=== PATIENT | female | born 1960 | race Caucasian/White ===

== ENCOUNTER → 2020-11-09 | Outpatient (CLI) | payer OTHER ==
[~2020-11-09] MED LIST: FISH OIL 1,0001 EAC9 PO; HYDROCHLOROTHIA25 M1 PO; MELOXICAM7.5 MG PO; NORVASC5 M1 PO; TYLENOL325 MG PO; ZESTRIL40 MG PO
[2020-11-09 09:15] LABS: MCHC 34.2 g/dL (28.0-37.0); MCV 90.7 fL (80.0-100.0); RBC 4.51 mil/uL (4.20-5.00)
[2020-11-09 09:16] LABS: URINE BILIRUBIN NEGATIVE (Negative); URINE BLOOD NEGATIVE (Negative); URINE CLARITY CLEAR; URINE COLOR YELLOW; URINE GLUCOSE-RANDOM* NEGATIVE (Negative); URINE KETONES NEGATIVE (Negative); URINE LEUKOCYTES-REFLEX NEGATIVE (Negative); URINE NITRITE-REFLEX NEGATIVE (Negative); URINE PROTEIN (DIPSTICK) NEGATIVE (Negative); URINE UROBILINOGEN 0.2 E.U./dl (0.2-1.0)
[2020-11-09 09:26] LABS: CALCIUM 9.1 mg/dL (8.5-10.1); CREATININE 1.6 mg/dL (0.6-1.0); POTASSIUM 4.5 mmol/L (3.5-5.1)
[2020-11-09 09:32] LABS: INR 0.99; PROTIME 10.8 Seconds (10.5-12.1)
== END ==
LOC: PAC 08:15
PROVIDERS: ATTEND Orthopaedic Surgery
DX: Z01.812 Encounter for preprocedural laboratory examination (principal); M17.0 Bilateral primary osteoarthritis of knee

== ENCOUNTER 2020-11-23 06:14 | Observation (INO) | payer OTHER ==
[2020-11-09 09:15] LABS: MCHC 34.2 g/dL (28.0-37.0); MCV 90.7 fL (80.0-100.0); RBC 4.51 mil/uL (4.20-5.00)
[2020-11-09 09:16] LABS: URINE BILIRUBIN NEGATIVE (Negative); URINE BLOOD NEGATIVE (Negative); URINE CLARITY CLEAR; URINE COLOR YELLOW; URINE GLUCOSE-RANDOM* NEGATIVE (Negative); URINE KETONES NEGATIVE (Negative); URINE LEUKOCYTES-REFLEX NEGATIVE (Negative); URINE NITRITE-REFLEX NEGATIVE (Negative); URINE PROTEIN (DIPSTICK) NEGATIVE (Negative); URINE UROBILINOGEN 0.2 E.U./dl (0.2-1.0)
[2020-11-09 09:26] LABS: CALCIUM 9.1 mg/dL (8.5-10.1); CREATININE 1.6 mg/dL (0.6-1.0); POTASSIUM 4.5 mmol/L (3.5-5.1)
[2020-11-09 09:32] LABS: INR 0.99; PROTIME 10.8 Seconds (10.5-12.1)
[~2020-11-23] VITALS: Ht 170.2 cm; Wt 117.9 kg
--- NOTE | ~2020-11-23 | D ---
[facility] [place] [address] DISCHARGE SUMMARY Name: MOOKIE JACQUES [id number] Ad[facility]: 11/23/20 Attend Phys: Jhony Cerrato MD Discharge: Date of : 60 Report #: [id number] THIS REPORT FOR: cc: FAM - Family physician unknown FAM - Family physician unknown Jhony Cerrato MD ~ DATE OF SERVICE: 11/24/2020 FINAL DIAGNOSES: End-stage degenerative arthritis, right knee. Hypertension. OPERATIONS AND PROCEDURES: Right total knee arthroplasty. HISTORY: This heavy deconditioned 60-year-old female presents with progressive bilateral knee pain, worse on the right side. She was admitted for right total knee arthroplasty. Her hospital course has at this point been largely unremarkable. She tolerated the surgical procedure well, but is mildly uncomfortable. Hemovac drainage was minimal and the drain has been removed on the first postoperative morning. She is starting a regular diet and tolerating that reasonably well, although with some mild nausea. She still has quite a bit of discomfort, but is being managed with oral pain medication. She has started limited activity and will begin more aggressive physical therapy today. Pending this, we are hoping that she may be able to advance activity and achieve independent and safe ambulation with a walker today or this evening. If she can make significant progress and seems safe and functionally independent, then we will plan for discharge either end of day today on 11/24 or tomorrow on 11/25. DISCHARGE MEDICATIONS: Include lisinopril 40 mg daily, hydrochlorothiazide 25 mg daily, Xarelto 10 mg daily, hydrocodone 5 or 10 mg q. 4 hours p.r.n. for pain. She will continue regular diet at home. She will continue with gradually advancing activity with physical therapy assistance and family assistance. I have asked that she call me if there are any problems or questions. We will plan to see her back in my office in 1 week for followup and in 2 weeks for suture removal. By: [id number] Jhony Cerrato MD /nt
[~2020-11-23 06:14] MED LIST changes: -NORVASC5 M1 PO
[2020-11-23 06:30] VITALS: BP 124/71
--- NOTE | 2020-11-23 10:10 | O ---
[facility] [place] [address] OPERATIVE REPORT Name: MOOKIE JACQUES Room #: 150-2 [facility]#: [id number] Admission: 11/23/20 Attend Phys: Jhony Cerrato MD Discharge: Date of : 60 Report #: [id number] THIS REPORT FOR: cc: FAM - Family physician unknown FAM - Family physician unknown Jhony Cerrato MD ~ DATE OF SERVICE: 11/23/2020 PREOPERATIVE DIAGNOSIS: End-stage degenerative arthritis, right knee. POSTOPERATIVE DIAGNOSIS: End-stage degenerative arthritis, right knee. PROCEDURE: Right total knee arthroplasty. SURGEON: Jhony Cerrato MD INDICATIONS: This 60-year-old female complains of chronic severe progressive right knee pain. Clinical exam and x-rays confirm moderately severe end-stage degenerative arthritis with damage in all 3 compartments. She has tried conservative measures without benefit. Her symptoms limit her ability to function and ambulate effectively. She has decided to go ahead with total knee arthroplasty. DESCRIPTION OF PROCEDURE: The patient was taken to the operating room where she was placed under general anesthesia. A femoral nerve block was also applied. The right knee and leg were meticulously prepped and draped. A thigh tourniquet was applied and inflated to 300 mmHg. An anterior longitudinal skin incision was made and carried through the medial retinaculum. The patella was reflected laterally. Marked degenerative change in all three compartments was noted. The Trent and Nephew knee system was utilized. Intramedullary guides were used on both the femur and the tibia. The femur was cut in 5 degrees of valgus and a size 6 femoral component seemed to fit nicely. The tibia was cut perpendicular to the long axis of the bone and a size 5 tibial component fit nicely. A size 9 mm polyethylene trial was placed and this resulted in good knee stability, full knee extension and flexion beyond 130 degrees. The patella surface was resected and a 35 mm patellar button fit nicely. The patella seemed to track nicely and appeared to be stable. The trial components were removed. The surfaces were thoroughly irrigated and dried. The intramedullary canal was blocked with a bone block on both the femoral and tibial sides. Methyl methacrylate cement was mixed and injected into the porous surface of the proximal tibia. The Trent and Nephew Audra II right nonporous tibial baseplate was applied using the size 5 component. This was impacted into position and seated nicely and appeared to be secure. Excess cement was removed from around its margin. A 9 mm Legion cruciate retaining high flexion polyethylene insert was then applied. It was snapped into position [address] [address] OPERATIVE REPORT Name: MOOKIE JACQUES Room #: 150-2 [facility]#: [id number] Admission: 11/23/20 Attend Phys: Jhony Cerrato MD Discharge: Date of : 60 Report #: [id number] and seemed to seat nicely and appeared to be secure. The Trent and Nephew size 6 right cruciate retaining Legion porous femoral component was impacted into position using a small amount of cement at the distal anchor holes where the bone is mildly osteopenic. This component also was seated nicely and appeared to be secure. The size 35 mm Audra II patellar button was applied with appropriate anchor holes and cement and secured with a patellar clamp until the cement had hardened. Once the cement was secure, range of motion, alignment and stability were once again assessed and felt to be satisfactory. The knee demonstrates full extension and the patella tracks nicely. Flexion is beyond 130 degrees with satisfactory stability. The wound was copiously irrigated. A single Hemovac was left in the wound exiting through a separate stab incision. The fascia was closed with multiple #1 Vicryl sutures. The tourniquet was deflated after a total tourniquet time of 60 minutes. 0 Moderate oozing at that point continued, but appeared to be manageable and well controlled with the Hemovac drain. The subcutaneous tissues were closed with 0 Monocryl. The skin was closed with skin fermin. Sterile dressing was applied. The patient was awakened and returned to the recovery room in good condition. <ELECTRONICALLY SIGNED> By: Jhony Cerrato MD 11/23/20 1010 0815 0828 Jhony Cerrato MD /nt
[2020-11-23 11:00] VITALS: BP 142/79
--- NOTE | 2020-11-23 17:52 | NUR ---
Pt transferred to unit from PACU. Pt a&ox4. On 2L O2. Home Cpap. Dressing c/d/i. ALYSSA hose and SCDs in place. IVF and IV antibiotics infusing. Able to tolerate meals. Pain controlled with prn pain meds. Family at bedside. Call light within reach. Fall rpecautions in place. Will continue to monitor.
[2020-11-23 20:50] VITALS: BP 113/64
--- NOTE | 2020-11-24 02:03 | NUR ---
ASSESSED AT START OF SHIFT. PT A&OX4. RESTING IN BED. IV INTACT AND FLUIDS INFUSING. HYDROCODNE GIVEN FOR PAIN. ICE PACK ON RT KNEE. PT UP WITH ASSISTX1 TO THE BSC. DENIES NAUSEA/VOMITING. FALL PREC IN PLACE AND WILL CONT TO MONITOR TILL EOS.
[2020-11-24 03:48] VITALS: BP 106/58
[2020-11-24 06:41] LABS: CALCIUM 7.9 mg/dL (8.5-10.1); CREATININE 1.4 mg/dL (0.6-1.0); MAGNESIUM 1.9 mg/dL (1.8-2.4); POTASSIUM 4.1 mmol/L (3.5-5.1)
[2020-11-24 07:37] LABS: ABSOLUTE NEUTROPHILS 8.5 thou/uL (1.4-8.2); BASOPHILS 0.4 % (0.0-2.0); EOSINOPHILS 0.2 % (0.0-3.0); HEMATOCRIT 31.8 % (37.0-47.0); LYMPHOCYTES 9.4 % (24.0-44.0); MCH 31.4 pg (26.0-34.0); MCHC 34.6 g/dL (28.0-37.0); MCV 90.7 fL (80.0-100.0); MONOCYTES 7.5 % (1.0-8.0); PLATELET COUNT 199 thou/uL (150-400); POLYS 82.5 % (36.0-66.0); RBC 3.51 mil/uL (4.20-5.00); RDW 12.1 % (10.5-14.5); WBC 10.3 thou/uL (4.0-11.0)
[2020-11-24 09:01] VITALS: BP 113/62
--- NOTE | 2020-11-24 10:56 | NUR ---
Assumed care of pt at 0700. Pt a&ox4. Dressing c/d/i. ALYSSA hose and SCDs in place. Pain controlled with prn pain medicine. Pt worked with physical therapy this am. Will have an afternoon session with physical therapy, and possible discharge to home. Family at bedside. Call light within reach. Fall precautions in place. Will continue to monitor.
[2020-11-24] MEDS ORDERED: NORVASC5 M1 PO (13:03)
[2020-11-24 13:34] VITALS: BP 113/62
[2020-11-24 14:13] VITALS: BP 113/62
--- NOTE | 2020-11-24 14:14 | NUR ---
ON-GOING ASSESSMENT: CM REVIEWED CHART AND SPOKE WITH PATIENT. PT IS S/P R TKR. PT REPORTS LIVING IN A HOUSE ALONE. PT STATES THAT HER FAMILY WILL BE STAYING WITH HER UPON DISCHARGE. PT REPORTS HAVING A RAMP TO ENTER HER HOME. PT HAS A WALKER AT HOME TO ASSIST WITH AMBULATION. PT DID WELL WITH THERAPY TODAY AND HAS BEEN CLEARED TO DISCHARGE HOME WITH . CM SPOKE WITH PT WHO HAS NO PREFERENCE OF [employer]. CM FAXED REFERRAL TO [facility] AND NOTIFIED OF DISCHARGE. CM FAXED DISCHARGE PAPERWORK TO THEM AND CONFIRMED THEY RECEIVED IT. CASE CLOSED.
== END 2020-11-24 14:24 | disposition home health service (06) ==
LOC: OR 06:14 → TBA 06:20 → PRE 10:37 → OR 11:12 → 4S 11:13 → PRE 12:19 → EDSTATUS 14:08 → OR 17:16 → 4S 11-24 14:24
PROVIDERS: Nurse Practitioner; ADMIT Orthopaedic Surgery; ATTEND Orthopaedic Surgery
DX: M17.11 Unilateral primary osteoarthritis, right knee (principal); R79.89 Other specified abnormal findings of blood chemistry; Z79.01 Long term (current) use of anticoagulants; Z88.0 Allergy status to penicillin; Z79.899 Other long term (current) drug therapy
CPT/HCPCS: 50010; 50101; 50415; 50954; 51130; 51225; 51412; 56525; 57095; 57103; 57104; 57180; 62110; 62900; 64039; 70005

== ENCOUNTER → 2021-04-07 | Outpatient (CLI) | payer OTHER ==
[~2021-04-07] MED LIST changes: +ASA81BEC PO; +COLLAGEN PO; +GLUCOSAMINE &1 EACH PO; +NORVASC10 MG PO; +NORVASC5 M1 PO
[2021-04-07 15:05] LABS: URINE BILIRUBIN NEGATIVE (Negative); URINE BLOOD NEGATIVE (Negative); URINE CLARITY CLEAR; URINE COLOR YELLOW; URINE GLUCOSE-RANDOM* NEGATIVE (Negative); URINE KETONES NEGATIVE (Negative); URINE LEUKOCYTES-REFLEX NEGATIVE (Negative); URINE NITRITE-REFLEX NEGATIVE (Negative); URINE PROTEIN (DIPSTICK) NEGATIVE (Negative); URINE UROBILINOGEN 0.2 E.U./dl (0.2-1.0)
[2021-04-07 16:40] LABS: CALCIUM 8.7 mg/dL (8.5-10.1); CREATININE 1.4 mg/dL (0.6-1.0); POTASSIUM 4.1 mmol/L (3.5-5.1)
[2021-04-07 16:52] LABS: PROTIME 10.9 Seconds (10.5-12.1)
[2021-04-07 17:21] LABS: HEMATOCRIT 42.8 % (37.0-47.0); HEMOGLOBIN 14.4 gm/dL (12.0-15.0); MCH 28.9 pg (26.0-34.0); MCHC 33.8 g/dL (28.0-37.0); MCV 85.7 fL (80.0-100.0); RBC 4.99 mil/uL (4.20-5.00); RDW 13.8 % (10.5-14.5); WBC 6.6 thou/uL (4.0-11.0)
--- NOTE | 2021-04-08 08:46 | EKG ---
[facility] [place] [address] ELECTROCARDIOGRAM REPORT Name: MOOKIE JACQUES Room [id number] Admission: 04/07/21 Attend Phys: Jhony Cerrato MD Discharge: Date of : 60 Report #: [id number] [facility] Test Date: 2021-04-07 Test Time: 13:47:57 Pat Name: MOOKIE JACQUES Department: Room: Gender: F [employer]: Artie CALDERON : 1960 Requested By: Jhony Cerrato Order Number: [id number] MD: Kenneth Waters Measurements Intervals Carter Rate: 71 P: 26 SD: 196 QRS: 36 QRSD: 103 T: 31 QT: 411 QTc: 447 Interpretive Statements Sinus rhythm Small inferior Q waves Poor R wave progression No previous ECG available for comparison Electronically Signed On 04-08-2021 8:45:48 AUTHOR'S AGENT by Kenneth Waters [email or web address] <ELECTRONICALLY SIGNED> By: Kenneth Waters MD, [facility] 04/08/21 0845 1347 1347 Kenneth Waters MD, FAC /EPI
== END ==
LOC: PAC 12:37
PROVIDERS: ATTEND Orthopaedic Surgery
DX: M17.12 Unilateral primary osteoarthritis, left knee (principal); I10 Essential (primary) hypertension

== ENCOUNTER → 2021-04-09 | Outpatient (CLI) | payer OTHER | LOC: LAB 05:50 | PROVIDERS: ATTEND Student in an Organized Health Care Education/Training Program | DX: Z01.812 Encounter for preprocedural laboratory examination (principal); Z20.822 Contact with and (suspected) exposure to COVID-19 ==

== ENCOUNTER 2021-04-12 06:28 | Observation (INO) | payer OTHER ==
[~2021-04-12] VITALS: Ht 170.2 cm; Wt 126.0 kg
[2021-04-12 07:26] VITALS: BP 148/84
--- NOTE | 2021-04-12 11:46 | O ---
[facility] [place] [address] OPERATIVE REPORT Name: MOOKIE JACQUES Room #: 448-P [facility]#: [id number] Admission: 04/12/21 Attend Phys: Jhony Cerrato MD Discharge: Date of : 60 Report #: [id number] THIS REPORT FOR: cc: FAM - Family physician unknown FAM - Family physician unknown Jhony Cerrato MD ~ DATE OF SERVICE: 04/12/2021 PREOPERATIVE DIAGNOSIS: Degenerative arthritis, left knee. POSTOPERATIVE DIAGNOSIS: Degenerative arthritis, left knee. PROCEDURE: Left total knee arthroplasty. SURGEON: Jhony Cerrato MD INDICATIONS: This heavy, but otherwise healthy 60-year-old female complains of progressive bilateral knee pain. Findings are consistent with degenerative arthritis. She underwent right total knee replacement several months ago with good result. She returns now for left total knee replacement. Preoperative evaluation reveals mild varus malalignment and significant degenerative change in all 3 compartments. DESCRIPTION OF PROCEDURE: The patient was taken to the operating room where she was placed under general anesthesia. A femoral nerve block was also applied. The left knee and leg were meticulously prepped and draped. Prophylactic intravenous antibiotics were administered. A thigh tourniquet was applied and inflated to 350 mmHg. An anterior longitudinal skin incision was made. This was carried through the medial retinaculum. The patella was reflected laterally. Moderate degenerative change in all 3 compartments was noted. The Trent and Nephew knee system was utilized. Intramedullary guides were used on both the femur and the tibia. The femur was cut in 5 degrees of valgus and a size 6 femoral component seemed to fit nicely. The tibia was cut perpendicular to the long axis of the bone correcting the mild varus malalignment. A size 5 tibial base plate seemed to fit nicely. A trial reduction was performed and a 9 mm polyethylene insert resulted in good alignment and range of motion and stability. The patellar surface was resected and a 35 mm patellar button fit nicely. Appropriate anchor holes were created. A trial patellar button was applied. The knee was passed through a full arc of motion and demonstrated good alignment and range of motion and stability. The preoperative mild flexion contracture and varus malalignment was corrected nicely. The trial components were removed. The surfaces were thoroughly irrigated and dried. The intramedullary canal was blocked with bone block on both the femoral and tibial sides. The Trent and Nephew size 5 Audra II tibial baseplate was then inserted. This was positioned nicely and impacted into place. It seated [address] [address] OPERATIVE REPORT Name: MOOKIE JACQUES Room #: 448-P [facility]#: [id number] Admission: 04/12/21 Attend Phys: Jhony Cerrato MD Discharge: Date of : 60 Report #: [id number] well and appeared to be secure. A cruciate retaining Legion, 9 mm polyethylene insert was then snapped into place. It seated nicely and appeared to be secure. A size 6 left cruciate retaining Legion porous femoral component was impacted on the distal femur. It seated nicely and appeared to be secure. A size 35 mm Audra II patellar button was applied with appropriate anchor holes and cement. It was secured with a patellar clamp until the cement had hardened. At this point, alignment, range of motion and stability were assessed and felt to be satisfactory. The patella seemed to track nicely. The wound was copiously irrigated. The tourniquet was deflated initially after tourniquet time of 60 minutes. At this point, there was a moderate amount of generalized oozing, mostly from bony surfaces, but also diffuse oozing from small vessels in the soft tissues. The knee was irrigated and gently packed. A single Hemovac was left in the wound exiting through a separate stab incision. The fascia was closed with #1 Vicryl after about 10 minutes of tourniquet downtime. The tourniquet was reinflated briefly, the joint was once again irrigated. The Hemovac seemed to be functioning nicely. The closure was continued. Before completing the closure, the tourniquet was deflated once again after a second tourniquet time of only about 7-8 minutes. The knee was injected with thrombin to assist in postoperative hemostasis. The Hemovac at this point seemed to have only moderate output. The closure was continued using 0 Monocryl in the subcutaneous tissues and fermin in the skin. A sterile dressing was applied. The patient was awakened and returned to the recovery room in good condition. <ELECTRONICALLY SIGNED> By: Jhony Cerrato MD 04/12/21 1146 0828 0920 Jhoyn Cerrato MD /stephanie
--- NOTE | 2021-04-12 12:09 | NUR ---
PT CARE ASSUMED AT 1055 THIS MORNING. PT IS POST OP LT TTL KNEE REPLACEMENT. PT IS A/OX4, DROWSY. PICCO DRESSING, TEDS, SCDS AND POLAR PACK IN PLACE. HELOVAC ATTACHED AND 25ML WAS DRAINED IN RECOVERY PRIOR TO COMING UP. ASSESSMENT AND CARE PLAN PERFORMED BY RNCYRUS. FALL PRECAUTIONS IN PLACE. CALL LIGHT AND OTHER NEEDS ARE IN REACH. MEDS AND TX GIVEN NEEDED AND SCHEDULED. WILL MONITOR AND NOTE ANY CHANGES.
[2021-04-12 20:01] VITALS: BP 137/89
--- NOTE | 2021-04-13 03:32 | NUR ---
PT IS A/O X4 AND IS UP WITH SBA TO THE BSC. PT C/O PAIN. PRN PAIN MEDICATION GIVEN DIRECTED. DRSG TO KNEE IS C/D/I. HEMOVAC HAS PUT OUT COPIOUS AMOUNTS OF BLOODY DRAINAGE CHARTED. PT C/O PAIN. PRN PAIN MEDICATION GIVEN DIRECTED. FALL PRECUATIONS IN PLACE, CALL LIGHT IS WITHIN REACH. PT IS PROGRESSING TOWARDS PLAN OF CARE DC GOALS.
[2021-04-13 06:00] LABS: HEMATOCRIT 32.2 % (37.0-47.0); HEMOGLOBIN 11.1 gm/dL (12.0-15.0); MCH 29.7 pg (26.0-34.0); MCHC 34.3 g/dL (28.0-37.0); MCV 86.5 fL (80.0-100.0); RBC 3.73 mil/uL (4.20-5.00); RDW 13.5 % (10.5-14.5)
[2021-04-13 06:32] LABS: CALCIUM 8.3 mg/dL (8.5-10.1); CREATININE 1.1 mg/dL (0.6-1.0); POTASSIUM 3.9 mmol/L (3.5-5.1)
[2021-04-13 07:31] VITALS: BP 127/80
[2021-04-13 10:36] VITALS: BP 127/82
--- NOTE | 2021-04-13 10:37 | NUR ---
RE-ASSUMED CARE OF PT AT 0700 THIS MORNING. PT IS A/OX4 AND STATED SHE IS READY TO GO HOME. WAITING ON PHYS THPY AND OT TO EVALUATE. NO CHANGES SINCE LAST NIGHT. 220ML DRAINED OFF THE HEMOVAC EARLY THIS MORNING. ASSESSMENTS NOTED IN CHART AND OTHERWISE UNREMARKABLE. FALL PRECAUTIONS ARE IN PLACE. CALL LIGHT AND OTHER NEEDS ARE IN REACH. POLAR PK ICE CHANGED. MEDS AND TX GIVEN NEEDED AND SCHEDULED. WILL CONTINUE TO MONITOR AND NOTE ANY CHANGES. HANS WITH PHYS RONNIE STATED PT IS CLEARED TO BE DISCHARGED. DISCHARGE PENDING HAS BEEN CHANGED TO DISCHARGE.
--- NOTE | 2021-04-14 12:03 | D ---
[facility] [place] [address] DISCHARGE SUMMARY Name: MOOKIE JACQUES Room #: 448-P [facility]Jaxon#: [id number] Admission: 04/12/21 Attend Phys: Jhony Cerrato MD Discharge: 04/13/21 Date of : 60 Report #: [id number] THIS REPORT FOR: cc: FAM - Family physician unknown FAM - Family physician unknown Jhony Cerrato MD ~ DATE OF SERVICE: 04/13/2021 FINAL DIAGNOSIS: Degenerative arthritis, left knee. OPERATIVE PROCEDURE: Left total knee arthroplasty. HISTORY: This generally healthy and active 60-year-old female has had progressive problems with arthritis in both knees. She underwent right total knee replacement in the past with good result. She returned now for left total knee arthroplasty. HOSPITAL COURSE: She was taken to the operating room and underwent left total knee arthroplasty on 04/12. She tolerated this well. The x-rays looked good. She has had moderate Hemovac output. The drain will be removed today. She has already been up with some assistance, ambulating in the room. She notes her pain is well controlled with oral analgesics. She has no significant problems or complaints. She is quite anxious for hospital discharge and notes that she went home after only 1 night following her previous knee arthroplasty. Consequently, she is hoping for discharge home today following 2 sessions of physical therapy. Her discharge medications include hydrocodone 10 mg q. 4-6 hours as needed for pain, Xarelto 10 mg daily, amlodipine 10 mg daily, glucosamine 1 tablet daily. She will continue regular diet at home. She will continue independent exercise over the coming week and then probably begin outpatient therapy in 7-10 days. I have asked her to call me if there are any problems or questions. We will plan for discharge home either at the end of the day on 04/13 or in the a.m. on 04/14, pending her progress with physical therapy. <ELECTRONICALLY SIGNED> By: Jhony Cerrato MD 04/14/21 1203 0727 0745 Jhony Cerrato MD /nt
== END 2021-04-13 12:23 | disposition home or self-care (01) ==
LOC: OR → 4S 06:28 → OR 06:28 → TBA 06:29 → OR 09:45 → 4S 11:17 → OR 11:18 → 4S 04-13 12:23
PROVIDERS: ADMIT Orthopaedic Surgery; ATTEND Orthopaedic Surgery
DX: M17.12 Unilateral primary osteoarthritis, left knee (principal); I12.9 Hypertensive chronic kidney disease with stage 1 through stage 4 chronic kidney disease, or unspecified chronic kidney disease; N18.9 Chronic kidney disease, unspecified; E66.9 Obesity, unspecified; G47.30 Sleep apnea, unspecified; Z87.891 Personal history of nicotine dependence; Z79.899 Other long term (current) drug therapy; Z68.41 Body mass index [BMI] 40.0-44.9, adult
CPT/HCPCS: 10102; 50010; 50101; 50415; 50954; 51130; 51225; 51412; 56525; 57095; 57103; 57104; 57180; 58449; 59024; 62110; 62900; 64039; 70005